=== PATIENT | female | born 1950 | race Caucasian/White ===

== ENCOUNTER 2017-07-13 10:19 | Emergency (ER) | payer MEDICARE, OTHER ==
[~2017-07-13] VITALS: Ht 165.1 cm; Wt 81.8 kg
[~2017-07-13 10:19] MED LIST: AZIT500T5 PO
[2017-07-13 10:36] VITALS: BP 143/96; PULSE 69; RESP 20; O2SAT 99
--- NOTE | 2017-07-13 10:45 | ED.REPORT ---
HPI-Chest Pain 40 and Over Date of Service Jul 13, 2017 ED Provider: Brad Jaime DO Pt is a 66 y/o female w/ a hx of diet controlled DM, presenting to the ED due to R ankle injury which occurred this morning. The patient rolled her ankle this morning and it is now causing her significant pain with associated swelling. She has also been experiencing left breast pain which radiates to her chest and back for a few days. The patient has had red spots on her left breast for at least the past year which she states has been worsening for the past 3 weeks. She has been given steroid cream for these spots and had an MRI of her breast 2 years ago for this problem. The only medication she takes is Trazodone. Nursing Notes Stated Complaint: RIGHT ANKLE INJURY,NAUSEA Chief Complaint: Extremity Trauma Nursing Notes Reviewed: Yes Allergies: Coded Allergies: No Known Allergies (Unverified , 07/13/17) Scheduled Azithromycin (Azithromycin) 500 Mg Tablet 500 MG PO DAILY Scheduled PRN oxyCODONE (oxyCODONE) 5 Mg Capsule 2.5-5 MG PO QID PRN PRN For Pain General Time Seen by MD: 10:42 Chief Complaint Other (Ankle injury) Hx Obtained From: Patient Arrived By: Walk-in Sudden in Onset?: Yes Onset Occurred: 1 - 4 hours ago Symptom Duration: Since onset Quality: Painful (R ankle) Severity: Current: Moderate Severity: Maximum: Moderate Recent Healthcare: No recent doctor visit, No recent hospitalization Similar Sx Previous: No Past Medical History Patient History: Stroke GRANDMOTHER MOTHER Past Medical History Diet controlled diabetes Past Surgical History Reports: Back/neck surgery Smoking History Former Smoker Social History Alcohol Use: Denies alcohol use Drug Use: Denies drug use Ambulatory Status Independent Review of Systems Constitutional: Denies: Fever Cardiovascular: Reports: Chest pain Musculoskeletal: Reports: Extremity pain, Extremity swelling Skin: Reports Rash Complete sys rev & neg: except as marked. Physical Exam Initial Vital Signs Vital Signs (First) Date Time Temp Pulse Resp B/P Pulse Ox O2 Delivery O2 Flow Rate FiO2 07/13/17 10:36 37.0 69 20 143/96 99 Room Air Initial VS: Reviewed, Vital signs normal Head / Eyes: Atraumatic, Normocephalic ENT: Mucous membranes moist, Conjunctiva normal Neck: Full range of motion Skin: Warm, Dry, No cyanosis Neurologic: Alert, Oriented, Nonfocal General/Constitutional: Awake, Alert, No acute distress, Cooperative, Not toxic appearing Respiratory / Chest: Breath sounds NL, Breath sounds = bilat, No respiratory distress, No rales, No rhonchi, No wheezing Inferior skin changes to the left breast. Inferior to the areola there is mild redness and underlying fullness suspicious for a mass. No warmth, fluctuance, induration Cardiovascular: Heart rate NL, Regular rhythm, Heart sounds NL, No gallop, No murmurs, No rubs, Cap refill not delayed, Peripheral circulation NL Lower Extremity / Pelvis / MS: Neurologic intact, Vascular intact Obvious deformity of the distal R tibia and ankle Psychiatric: Mood NL Odd somewhat apathetic affect Interpretation & Diagnostics Lab Results Interpretation Result Diagram: 07/13/17 1115 07/13/17 1115 Test 07/13/17 11:15 07/13/17 12:16 White Blood Count 7.6th/mm3 (3.8-10.1) Red Blood Count 4.61mil/mm3 (3.90-5.20) Hemoglobin 13.6g/dL (12.0-15.6) Hematocrit 39.4% (35.0-46.0) Mean Corpuscular Volume 85.5fL (81-100) Mean Corpuscular Hemoglobin 29.5pg (27.0-35.0) Mean Corpuscular Hemoglobin Concent 34.5% (32.0-37.0) Red Cell Distribution Width 11.8% (12.3-15.4) Platelet Count 372bil/L (150-400) Neutrophils (%) (Auto) 75.7% (40-74) Lymphocytes (%) (Auto) 19.3% (14-46) Monocytes (%) (Auto) 3.0% (4-12) Eosinophils (%) (Auto) 1.3% (0-5) Basophils (%) (Auto) 0.3% (0-3) D-Dimer 2.62mg/L FEU (<0.50) Sodium Level 138mEq/L (134-144) Potassium Level 4.6mEq/L (3.5-5.2) Chloride Level 99mEq/L (97-108) Carbon Dioxide Level 23mmol/L (18-29) Blood Urea Nitrogen 23mg/dL (8-27) Creatinine 0.77mg/dL (0.57-1.00) Estimat Glomerular Filtration Rate 107mL/min (>59) Glucose Level 220mg/dL (60-99) Calcium Level 9.5mg/dL (8.5-10.1) Magnesium Level 2.1mg/dL (1.6-2.6) Total Bilirubin 1.1mg/dL (0.0-1.2) Aspartate Amino Transf (AST/SGOT) 21U/L (0-50) Alanine Aminotransferase (ALT/SGPT) 25U/L (0-32) Alkaline Phosphatase 72U/L (25-165) Total Creatine Kinase 54U/L (21-215) Creatine Kinase MB 1.2ng/mL (0.0-5.3) Creatine Kinase MB % % (0.0-5.0) Troponin T 0.010ug/L (0.0-0.011) Pro-B-Type Natriuretic Peptide 36.99pg/mL (0-301) Total Protein 7.6g/dL (6.4-8.4) Albumin 4.7g/dL (3.4-5.0) Hold Urine Received (Received) ECG Interpretation ECG Interpretation: Sinus rhythm rate 72 Time: 11:09 Interpreted by: ED physician Normal ECG Interpretation: No acute ischemic changes X-Ray Chest Interpretation Chest Xray Interpretation: IMPRESSION: Acute disease is not seen in the upright portable chest status post falling. Dictated by: Ángel Lucas M.D. on 07/13/2017 at 11:24 Approved by: Ángel Lucas M.D. on 07/13/2017 at 11:25 View: Portable, 1 view Interpretation / Wet Read by: Interpret - Radiologist X-Ray Interpretation Xray Interpretation: IMPRESSION: Fracture of the distal tibia and fibula best seen on the right ankle films. No proximal tibia or fibular fracture is found. Dictated by: Ángel Lucas M.D. on 07/13/2017 at 11:25 Approved by: Ángel Lucas M.D. on 07/13/2017 at 11:25 X-Ray Ordered: Tibia fibula right Interpretation / Wet Read by: Interpret - Radiologist Xray Interpretation: FINDINGS: Bones: There is an acute fracture of the posterior malleolus of the tibia involving the posterior millimeter of articular surface and of the distal tibial fragment displaced superiorly the thickness of the tibial cortex, one-2 mm. There is a fracture of the distal fibula appears to be oblique or spiral and is comminuted and enters the ankle mortise at the level of the plafond. No widening of the mortise is seen. Distal fibular fragment is displaced slightly laterally and posteriorly the thickness of the fibular cortex. Ankle mortise is normally aligned. No suspicious bony lesions. Soft tissues: No tibiotalar joint effusion. Achilles tendon appears normal. Prominent lateral soft tissue swelling is present. IMPRESSION: 1. Fracture of the posterior and lateral malleoli of the right ankle as described. X-Ray Ordered: Ankle right Interpretation / Wet Read by: Interpret - Radiologist CT Chest Interpretation IMPRESSION: There is no evidence for pulmonary embolus. The lesion of the left lung apex seen on the previous CT is unchanged over the past 22 months. Based upon flexion or criteria followup is still needed. Because of lack of changea CT scan in one year is suggested. Dictated by: Ángel Lucas M.D. on 07/13/2017 at 12:53 Approved by: Ángel Lucas M.D. on 07/13/2017 at 13:02 Study type: CT pulm angiogram Interpretation / Wet Read by: Interpret - Radiologist Re-Eval/Medical Decision Med Decision/Clinical Course Patient presents with multiple issues: She sustained a mechanical ground-level fall and has a closed bimalleolar ankle fracture which was placed into a walking boot and she was given crutches. Additionally she complains of chest pain, she is not diabetic not on any medications. Cardiac workup including CT to exclude pulmonary embolism is unremarkable in the ER. She also has skin changes in the inferior portion of the left breast concern for an underlying mass. She is strongly recommended to follow-up closely with her primary care for further evaluation of all these issues. She is discharged with oxycodone for pain. Return precautions given. Time of Eval: 13:14 Re-Evaluation/Progress Note: Pt rechecked. Informed pt of plan for discharge. Pt understands and agrees with plan for discharge. F/U instructions and RTER warnings given. All questions addressed. Counseled Regarding: Diagnosis, Lab results, Need for follow-up, When/why to return to ED Discharge & Departure Primary Impression: Ankle fracture Encounter type: initial encounter Fracture type: closed Laterality: right Qualified Code: S82.891A - Other fracture of right lower leg, initial encounter for closed fracture Additional Impressions: Breast lesion Chest pain Chest pain type: unspecified Qualified Code: R07.9 - Chest pain, unspecified Disposition: Home Discharge Condition All VS Reviewed: Yes Condition: Stable Patient Instructions: Angina (ED) Additional Instructions: Your workup in the ER is reassuring for your heart. It does not appear to having a heart attack. Take an aspirin daily for primary prevention of heart attack. Also, you have broken your ankle, which will need to be followed up by orthopedic surgeon. Irritable bowel walking boot and use crutches. Do not put weight on your right ankle. You should be seen urgently by your primary care doctor for a mammogram and further evaluation of the lesions on your breast. Return to the ER as needed for worsening symptoms. Referrals: Garry Hollins MD (PCP) Scribe Attestation Portions of this note were transcribed by Woodrow Mendes. I, Dr. Jaime personally performed the history, physical exam and medical decision-making; I reviewed and confirmed the accuracy of the information in the transcribed note. copies to: Garry Hollins MD, Timothy S DO Jul 13, 2017 10:45 WOODROW MENDES Jul 13, 2017 10:52
[2017-07-13] MEDS ORDERED: Ondansetron 2 mg/mL 2 mL Inj IVPUSH ONE (10:55)
--- NOTE | 2017-07-13 11:25 | DRSVH ---
PROCEDURE: X-RAY RIGHT ANKLE, MINIMUM THREE VIEWS ([id number]) INDICATIONS: TRAUMA TECHNIQUE: 3 views of the ankle were acquired. COMPARISON: None. FINDINGS: Bones: There is an acute fracture of the posterior malleolus of the tibia involving the posterior mil limeter of articular surface and of the distal tibial fragment displaced superiorly the thickness of the tibial cortex, one-2 mm. There is a fracture of the distal fibula appears to be oblique or spiral and is comminuted and enters the ankle mortise at the level of the plafond. No widening of the mortise is seen. Distal fibular fr agment is displaced slightly laterally and posteriorly the thickness of the fibular cortex. Ankle mor tise is normally aligned. No suspicious bony lesions. Soft tissues: No tibiotalar joint effusion. Achilles tendon appears normal. Prominent lateral soft tissue swelling is present. IMPRESSION: 1. Fracture of the posterior and lateral malleoli of the right ankle as described. Dictated by: Ángel Lucas M.D. on 07/13/2017 at 11:22 Approved by: Ángel Lucas M.D. on 07/13/2017 at 11:23
--- NOTE | 2017-07-13 11:26 | DRSVH ---
PROCEDURE: X-RAY CHEST ONE VIEW, PORTABLE ([id number]) INDICATIONS: pain, fall TECHNIQUE: One view of the chest was acquired. COMPARISON: None. FINDINGS: Surgical changes and devices: it technician leads are present. There is a dorsal column stimulator at approximately T7-T8 level. Lungs and pleura: No pleural effusions or pneumothorax. Lungs are clear. Mediastinum: Mediastinal contours appear normal. Heart size is normal. Bones and chest wall: No suspicious bony lesions. Overlying soft tissues appear unremarkable. IMPRESSION: Acute disease is not seen in the upright portable chest status post falling. Dictated by: Ángel Lucas M.D. on 07/13/2017 at 11:24 Approved by: Ángel Lucas M.D. on 07/13/2017 at 11:25
--- NOTE | 2017-07-13 11:27 | DRSVH ---
PROCEDURE: X-RAY RIGHT TIBIA/FIBULA, TWO VIEWS ([id number]) INDICATIONS: pain, fall TECHNIQUE: 2 views of the tibia and fibula were acquired. COMPARISON: None. FINDINGS: Bones: Fracture of the posterior aspect of the tibia and of the distal diaphysis of the fibula with e xtension into the ankle mortise is seen of the right ankle. Ankle images are better at this plane the fracture. Soft tissues: No suspicious soft tissue calcifications or masses. IMPRESSION: Fracture of the distal tibia and fibula best seen on the right ankle films. No proximal t ibia or fibular fracture is found. Dictated by: Ángel Lucas M.D. on 07/13/2017 at 11:25 Approved by: Ángel Lucas M.D. on 07/13/2017 at 11:25
[2017-07-13 11:40] LABS: BASOPHILS % (AUTO) 0.3 % (0-3); EOSINOPHILS % (AUTO) 1.3 % (0-5); Mean Corpuscular Hemoglobin 29.5 pg (27.0-35.0); Mean Corpuscular Volume 85.5 fL (81-100); NEUTROPHILS % (AUTO) 75.7 % (40-74); Platelet Count 372 bil/L (150-400)
[2017-07-13 12:08] VITALS: BP 161/78; PULSE 80; RESP 25; O2SAT 99
[2017-07-13 12:20] LABS: Creatine Kinase 54 U/L (21-215); Magnesium 2.1 mg/dL (1.6-2.6)
--- NOTE | 2017-07-13 13:03 | DRSVH ---
PROCEDURE: CT ANGIO CHEST PULMONARY EMBOLISM ([id number]) INDICATIONS: chest pain elevated DDimer, possibleft breast mass TECHNIQUE: After the administration of intravenous contrast, 2 mm thick sections acquired from the pulmonary api nayla to the posterior costophrenic angles. 3-dimensional maximum intensity projection (MIP) coronal a nd sagittal reformats were then acquired through the thorax. For radiation dose reduction, the follo wing was used: automated exposure control, adjustment of mA and/or kV according to patient size. COMPARISON: [facility], CT, CT ANGIO CHEST PE, 10/23/2015, 18:38. FINDINGS: Image quality: Good. Pulmonary arteries: Pulmonary arteries are normal in size, and demonstrate no intraluminal filling d efects to suggest central pulmonary embolism. Lungs and pleura: Lungs are clear. No pleural effusions or pneumothorax. Central and peripheral ai rways are patent. Mediastinum: Heart size is normal, without pericardial effusion. No mediastinal or hilar adenopathy . Thoracic aorta is normal in caliber and enhancement. Esophagus is normal in caliber, without hiat al hernia. Bones and chest wall: No suspicious bony lesions. Ribs and thoracic spine appear intact throughout. Thyroid gland is within normal limits. No axillary or supraclavicular adenopathy. Abdomen: Visualized upper abdominal solid organs appear normal in the early arterial phase of enhanc ement. IMPRESSION: There is no evidence for pulmonary embolus. The lesion of the left lung apex seen on the previous CT is unchanged over the past 22 months. Based upon flexion or criteria followup is still needed. Because of lack of changea CT scan in one year is suggested. Dictated by: Ángel Lucas M.D. on 07/13/2017 at 12:53 Approved by: Ángel Lucas M.D. on 07/13/2017 at 13:02
[2017-07-13] MEDS ORDERED: OXYC5CAP4 PO (13:20)
[2017-07-13 13:28] VITALS: BP 140/73; PULSE 79; RESP 20; O2SAT 99
[2017-07-13 14:07] VITALS: BP 140/73; PULSE 79; RESP 20; O2SAT 99
== END 2017-07-13 14:09 | disposition home or self-care (01) ==
LOC: SED 10:19
DX: S82.841A Displaced bimalleolar fracture of right lower leg, initial encounter for closed fracture (principal); R07.9 Chest pain, unspecified; N64.59 Other signs and symptoms in breast; W18.40XA Slipping, tripping and stumbling without falling, unspecified, initial encounter; Y93.89 Activity, other specified; Y99.8 Other external cause status; Y92.89 Other specified places as the place of occurrence of the external cause; E11.9 Type 2 diabetes mellitus without complications; Z87.891 Personal history of nicotine dependence
CPT/HCPCS: 29515; 36415; 71010; 71275; 73590; 73610; 80053; 82550; 82553; 83735; 83880; 84484; 85025; 85378; 93005; 96374; 96375; 96376; 99285; J2270; J2405; Q9967